=== PATIENT | female | born 1960 ===

== ENCOUNTER 2021-08-26 20:52 | Emergency (ER) | payer OTHER, SELFPAY ==
--- NOTE | 2021-08-26 20:54 | ED.EPISTAXIS ---
HPI - Epistaxis General Chief complaint: Nasal Problem Stated complaint: nosebleed x1 hour Time Seen by Provider: 08/26/21 20:53 History of Present Illness HPI Narrative: 61-year-old female nonsmoker with history of hypothyroid presents with a chief complaint of a nose bleed for the past 1 hour. She has had 2 sentinel bleed over the past few days that resolved on their own. She is not dizzy nor weak or lightheaded. She denies any trauma or injury. She has not been picking her nose or itching it. She denies any use of blood thinners or history of the same other than recently. She is otherwise well and free of complaint Related Data Home Medications Medication Instructions Recorded Confirmed levothyroxine 25 mcg tablet ##0 04/23/16 Allergies Allergy/AdvReac Type Severity Reaction Status Date / Time iodine [IODINE] Allergy Intermediate HIVES Unverified 06/12/17 12:54 shellfish derived Allergy Intermediate HIVES Unverified 06/12/17 12:54 [SHELLFISH DERIVED] Review of Systems Review of Systems Narrative: GENERAL: Denies chills, fatigue, malaise, fever, sweats. HEENT: See HPI RESPIRATORY: Denies dyspnea, cough, wheezing, hemoptysis, sputum. CARDIOVASCULAR: Denies chest pain, palpitations, orthopnea, edema, GASTROINTESTINAL: Denies nausea, vomiting, abdominal pain, diarrhea, constipation, melena. : Denies dysuria, frequency, incontinence, hematuria, urinary retention. MUSCULOSKELETAL: denies weakness, joint pain, or bony pain SKIN: Denies rash, skin lesions, or other NEUROLOGIC: Denies weakness, headache, numbness, change in speech, confusion, seizures, incoordination. PSYCHIATRIC: No concerning psychosocial issues. 12 point review of systems is negative except for those stated above Patient History Social History Smoking Status: Never smoker Exam Narrative Exam Narrative: GENERAL: [61] year old patient appears stated age. Well-developed patient, in mild distress. HEAD: Atraumatic. Normocephalic. EYES: Pupils equal round and reactive. Extraocular motions intact. No scleral icterus. No injection or drainage. ENT: Bright red bleeding with fresh clots more so and right Tristan than left.. Throat without erythema, tonsillar hypertrophy or exudate. Airway patent. NECK: Trachea midline. Non tender CARDIOVASCULAR: Regular rate and rhythm without murmurs, gallops, or rubs. RESPIRATORY: Clear to auscultation. Breath sounds equal bilaterally. No wheezes, rales, or rhonchi. GASTROINTESTINAL: Abdomen soft, non-tender, nondistended. EXTREMITIES: No edema or joint tenderness. BACK: Nontender without deformity or crepitance. No flank tenderness. NEURO: AOx3. SKIN: No rash or erythema of visible areas Initial Vital Signs Initial Vital Signs: Vital Signs Temperature 98 F 08/26/21 20:59 Pulse Rate 92 H 08/26/21 20:59 Respiratory Rate 20 08/26/21 20:59 Blood Pressure 178/85 H 08/26/21 20:59 Pulse Oximetry 98 08/26/21 20:59 Oxygen Delivery Method 08/26/21 20:59 Procedures Epistaxis Control Time Out Performed: Yes Nostril: right Nose Prepped With: oxymetazoline Direct Inspection: yes and anterior source identified (brisk arterial bleeding noted after fresh clots removed) Clots Removed by: blowing nose and suction Cautery Used: silver nitrate (did not work in setting of active arterial bleeding) Device Inserted: hemostatic balloon Device Size: 4 Patient Tolerated Procedure: well Course Orders Ordered: Discontinued Medications Oxymetazoline HCl (Oxymetazoline Nasal [place] 15 Ml) 2 sprays NASAL NOW ONE Stop: 08/26/21 20:59 Last Admin: 08/26/21 21:08 Dose: 2 sprays Documented By: SANTI Silver Nitrate/Potassium Nitrate (Silver Nitrate Stick) 1 each TOP NOW ONE Stop: 08/26/21 20:59 Last Admin: 08/26/21 21:08 Dose: 1 each Documented By: SANTI Tranexamic Acid (Tranexamic Acid 1,000 Mg Vial) 1,000 mg MM NOW ONE Stop: 08/26/21 22:58 Last Admin: 08/26/21 23:09 Dose: 1,000 mg Documented By: SANTI Vital Signs Vital signs: Vital Signs - 8 hr 08/26/21 20:59 08/26/21 22:15 08/26/21 22:15 Temperature 98 F Pulse Rate 92 H 84 Respiratory Rate 20 Blood Pressure 178/85 H 167/83 H Pulse Oximetry 98 97 Oxygen Delivery Method Room Air 08/26/21 22:30 08/26/21 22:30 08/26/21 23:00 Temperature Pulse Rate 81 Respiratory Rate Blood Pressure 159/83 H 169/77 H Pulse Oximetry 96 Oxygen Delivery Method 08/26/21 23:00 Temperature Pulse Rate 80 Respiratory Rate Blood Pressure Pulse Oximetry 96 Oxygen Delivery Method Discharge Plan Departure Patient Disposition: Home Clinical Impression: Epistaxis Instructions: DI for Nosebleed Activity Restrictions/Additional Instructions: *You have been diagnosed with [ acute anterior epistaxis from artery, bleeding controlled with Rhino Rocket] *What to do: *Follow up with Dr. Muse of [facility] in 2-3 days, call for an appointment. Let them know you were seen in the Emergency Department and that we ask that you be seen in follow up *Return to ER if you should have any new, worsening or concerning symptoms * The nasal balloon must stay in place until your follow up with ENT Prescriptions: No Action levothyroxine 25 MCG tablet Qty: 0 Referrals: Amy Choi MD [Primary Care Provider] - Hao Muse MD [Physician] - Visit Report Forms: Patient Portal/API
[2021-08-26 20:59] VITALS: BP 178/85; PULSE 92; RESP 20; TEMP 36.6; O2SAT 98; BMI 22.6
[2021-08-26] MEDS: OXYMETAZOLINE NASAL SPRAY 15 ML 2 SPRAYS NASAL (21:08)
[2021-08-26] MEDS: SILVER NITRATE STICK 1 EACH TOP (21:08)
[2021-08-26 22:15] VITALS: BP 167/83; PULSE 84; O2SAT 97
--- NOTE | 2021-08-26 22:25 | PC.NURSE ---
Provider at bedside. Pt bleeding has stopped. Clot removed from right nare and nasal spray on cotton ball/clamp reapplied for 15 minutes before silver nitrate to be applied. Pt verbally confirms understanding of process.
[2021-08-26 22:30] VITALS: BP 159/83; PULSE 81; O2SAT 96
[2021-08-26 23:00] VITALS: BP 169/77; PULSE 80; O2SAT 96
[2021-08-26] MEDS: TRANEXAMIC ACID 1,000 MG VIAL 1000 MG MM (23:09)
== END 2021-08-26 23:20 | disposition home or self-care (01) ==
PROVIDERS: Emergency Provider Emergency Medicine; Family Provider Family Medicine; PCP Family Medicine
DX: R04.0 Epistaxis (principal)
CPT/HCPCS: 17250; 99282; A9270